=== PATIENT | female | born 1940 | race Caucasian/White ===

== ENCOUNTER 2018-04-02 17:19 | Inpatient (IN) ==
[2018-04-02] MEDS ORDERED: D5% in Water 1,000 ML IVC PRN (18:25)
[2018-04-02] MEDS ORDERED: Dextrose Gel 15 GM/37.5 ML TUBE PO PRN ×2 (18:25)
[2018-04-02] MEDS ORDERED: *HR* Dextrose 50 % in Water (Syg) 50 ML SYRINGE IVP PRN (18:25)
[2018-04-02] MEDS: *HR* HYDROcodone/Acet 5/325 mg TABLET PO PRN ×2 (18:53→23:23)
[2018-04-02] MEDS ORDERED: Insulin DETEMIR 100 UNIT/ML per UNIT SQ ONE (21:00)
[2018-04-02] MEDS ORDERED: NON-FORMULARY MEDICATION 1 EACH EACH (Insulin Glargine,Hum.Rec.Anlog [Basaglar Kwikpen U-1 SQ SCH (21:00)
[2018-04-02] MEDS: Budesonide/Formoterol 160/4.5 MDI IH SCH (21:29)
[2018-04-02] MEDS: Linezolid 600 MG TABLET PO SCH (21:36)
[2018-04-02] MEDS: Gabapentin 300 MG CAPSULE PO SCH (21:36)
[2018-04-02] MEDS: Insulin LISPRO 300 UNITS/3 ML VIAL SQ SCH (21:38)
[2018-04-02] MEDS: RESTASIS OP SCH (21:39)
[2018-04-03] MEDS ORDERED: *HR* FentaNYL PATCH 12 MCG PATCH TD SCH (01:45)
[2018-04-03] MEDS ORDERED: OMEGA PO SCH (09:00)
[2018-04-03] MEDS ORDERED: DHA PO SCH (09:00)
[2018-04-03] MEDS ORDERED: KRILL PO SCH (09:00)
[2018-04-03] MEDS ORDERED: LIPIDS PO SCH (09:00)
[2018-04-03] MEDS ORDERED: Furosemide 40 MG TABLET PO SCH (09:00)
[2018-04-03] MEDS ORDERED: EPA PO SCH (09:00)
[2018-04-03] MEDS: Insulin LISPRO 300 UNITS/3 ML VIAL SQ SCH ×4 (09:20→21:23)
[2018-04-03] MEDS: Aspirin 81 MG TAB.CHEW PO SCH (09:51)
[2018-04-03] MEDS: Gabapentin 300 MG CAPSULE PO SCH ×3 (09:51→21:23)
[2018-04-03] MEDS: Cholecalciferol (D-3) 1,000 UNIT TABLET PO SCH (09:51)
[2018-04-03] MEDS: predniSONE 20 MG TABLET PO SCH (09:51)
[2018-04-03] MEDS: Folic Acid 1 MG TABLET PO SCH (09:51)
[2018-04-03] MEDS: Linezolid 600 MG TABLET PO SCH ×2 (09:51→21:23)
[2018-04-03] MEDS: *HR* HYDROcodone/Acet 5/325 mg TABLET PO PRN ×3 (09:52→22:03)
[2018-04-03] MEDS: Budesonide/Formoterol 160/4.5 MDI IH SCH ×2 (10:41→21:34)
[2018-04-03] MEDS: Methocarbamol 500 MG TABLET PO PRN ×2 (11:42→22:03)
[2018-04-03] MEDS: RESTASIS OP SCH ×2 (14:03→21:25)
--- NOTE | 2018-04-03 16:29 | Internal Med History&Physical ---
Date of Encounter: 04/03/18 Time of Encounter: 15:50 Assessment and Plan (1) Anemia Current visit: No Status: Acute Anemia testing 08/14/2017 showed iron 146, transferrin saturation 36%, transferrin 289, ferritin 126, B12 707, and folate 16.5. We will monitor CBC. Qualifiers: Anemia type: unspecified type Qualified Code(s): D64.9 - Anemia, unspecified (2) CKD (chronic kidney disease) stage 3, GFR 30-59 ml/min Current visit: No Status: Chronic Will monitor renal indices. (3) Pulmonary fibrosis, unspecified Current visit: No Status: Chronic Continue oxygen. (4) Diabetes mellitus Current visit: No Status: Acute Hemoglobin A1c was 10.7% on 01/26/2018. Continue Levemir and Accu-Cheks with SSI. Qualifiers: Diabetes mellitus type: type 2 Diabetes mellitus ferry terminal agent insulin use: with long-term use Diabetes mellitus complication status: with kidney complications Diabetes mellitus complication detail: with chronic kidney disease Chronic kidney disease stage: stage 3 (moderate) Qualified Code(s): E11.22 - Type 2 diabetes mellitus with diabetic chronic kidney disease; N18.3 - Chronic kidney disease, stage 3 (moderate); Z79.4 - custodial (current) use of insulin (5) Compression fracture of L4 lumbar vertebra Current visit: No Status: Chronic Vitamin D level was normal at 33 on 02/17/2018. Continue vitamin D supplement. Osteoporosis status unknown. Qualifiers: Encounter type: subsequent encounter Fracture type: closed Fracture healing: with routine healing Qualified Code(s): S32.040D - Wedge compression fracture of fourth lumbar vertebra, subsequent encounter for fracture with routine healing Internal Medicine - H&P: HPI Chief complaint: Back pain, dyspnea Admitted From: Hospital to Hospital Transfer Plans for Post Hospital Care: Home History of present illness: Ms. Pop is a 77 year old female who was hospitalized at [facility] March 28- with UTI and back pain possibly due to subacute L4 compression fracture. It was felt she would benefit from ongoing therapy and she was discharged to [facility] swing bed. Past Med Surg Social Fam HX - Past Medical History Medical history: arthritis, cancer, COPD, diabetes, fibromyalgia, GERD, myocardial infarction, thyroid disease, other Psychiatric history: no psych history - Past Surgical History Surgical History: appendectomy, hysterectomy, orthopedic, other - Social History Smoking Status: Former smoker Smokeless Tobacco Status: No Alcohol use: none Drug use: none - Family History Father Family Member Ethnicity: Non- Living Status: Hx Family Cancer: Yes (Stomach ca) Mother Family Member Ethnicity: Non- Living Status: Hx Family Cardiac Disorders: Yes (Aneurysm) Brother Family Member Ethnicity: Non- Living Status: Sister Family Member Ethnicity: Non- Living Status: Hx Family Cardiac Disorders: Yes (DVT) Hx Family Endocrine Disorder: Yes (Liver disease) Internal Medicine - H&P: Meds Docusate Sodium [Colace] 100 mg PO DAILY PRN 04/08/16 [History] Folic Acid 1 mg PO DAILY 04/08/16 [History] Albuterol Sulfate [Ventolin Hfa] 2 puff IH Q4H PRN 04/11/16 [History] Budesonide/Formoterol 160/4.5 [Symbicort 160/4.5] 2 puff IH BIDR 04/11/16 [ History] Aspirin 81 mg PO DAILY 04/18/16 [History] Cholecalciferol (D-3) [Vitamin D] 1,000 unit PO DAILY 01/12/17 [History] Krill/[place]-3/Dha/Epa/Lipids [Krill Oil 300 mg Softgel] 1 cap PO DAILY 01/12/17 [History] Rosuvastatin Calcium [Crestor] 5 mg PO Q48H 01/12/17 [History] Levothyroxine Sodium [Levoxyl] 100 mcg PO QAM 07/31/17 [History] Esomeprazole Magnesium [Nexium] 20 mg PO DAILY 10/21/17 [History] Cyclosporine [Restasis Multidose] 1 drop BOTH EYES BID 11/13/17 [History] Insulin Glargine,Hum.rec.anlog [Basaglar Kwikpen U-100] 10 unit SQ HS 01/25/18 [ History] Insulin LISPRO [Humalog Kwikpen U-100] 2 - 10 unit SQ QID 01/25/18 [History] Brimonidine Tartrate 1 drop RIGHT EYE TID 03/28/18 [History] Metoprolol [Lopressor] 12.5 mg PO BID 03/28/18 [History] Furosemide [Lasix] 40 mg PO DAILY tablet 04/02/18 [Rx] Gabapentin [Neurontin] 600 mg PO TID capsule 04/02/18 [Rx] Lidocaine Patch [Lidoderm 5% patch] 1 each TP DAILY adh..patch 04/02/18 [Rx] Linezolid [Zyvox] 600 mg PO BID 4 Days tablet 04/02/18 [Rx] Silvasorb 1 appl TP DAILY tube 04/02/18 [Rx] predniSONE [PredniSONE] See Taper PO DAILY 30 Days #100 tablet 04/02/18 [Rx] 3 Allergy/AdvReac Type Severity Reaction Status Date / Time No Known Allergies Allergy Verified 03/28/18 09:53 All Systems PM: A 10-system review of systems was performed and is negative for pertinent findings except as documented above in the HPI. Review of systems: Gen.: She states her weight has increased approximately 50 pounds in the past year. She attributes this to prednisone use Cardiovascular: She has history of hypertension. She has known ASHD status post OK with single stent placed approximately 2001. She denies follow-up stress test or heart catheter since then. She denies DVT or pulmonary embolus. An echocardiogram 01/26/2018 showed LVEF of 60%. There was increased thickness of the interventricular septum and posterior wall at 1.60 and 1.20 cm respectively. The E/A ratio was 0.8. There was mild tricuspid regurgitation and minimally elevated RVSP estimated at 39 mmHg. Respiratory: She smoked from age [age] up to 2 packs per day. She reports being diagnosed with COPD although pulmonary function tests at [facility] 03/12/2017 showed normal spirometry but severe decrease in diffusion capacity at 28%. She has pulmonary fibrosis which she attributes to XRT for NSCLC. She reports she is "cured" of the lung cancer. She wears oxygen at home 08/06. GI: She has GERD but denies disorders of her liver or exocrine pancreas : She has chronic kidney disease stage III and follows with a [place] corrections counselor. She has frequent UTIs. She denies other kidney or bladder disorders Neurologic: She claims she has had mini strokes. She denies large distribution strokes or seizures. Endocrine: She was diagnosed with DM 2 approximately 6 months ago. She has hypothyroidism and history of hyperlipidemia Hematology/oncology: She has NSCLC diagnosed and treated with XRT 2014. She was unaware she had anemia. She denies other internal malignancies or blood disorders Psychiatric: She denies anxiety or depression or other mental health issues [place] skeletal: She has rheumatoid arthritis and fibromyalgia. She had subacute L4 vertebral fracture documented during her recent [facility] stay. She has had bilateral total shoulder replacements and right ankle pin inserted. - Constitutional Vitals: Temp Pulse Resp BP Pulse Ox 97.9 F 77 14 142/76 99 04/03/18 06:00 04/03/18 10:34 04/03/18 10:41 04/03/18 06:00 04/03/18 10:41 Exam: Gen.: She is a well-developed overweight female sitting in a chair at bedside who appears in no acute distress HEENT: Head is atraumatic and normocephalic. Eyes: EOMI. There is no scleral icterus. Mouth: Mucosa is moist. Neck: Supple and nontender. There is no thyromegaly or adenopathy noted. Heart: Regular without murmurs gallops or ectopics Lungs: No wheezes or crackles are heard. Abdomen: Soft and nontender. No masses or guarding are noted. Extremities: She has thinning of the skin with significant ecchymoses of various stages of her arms and legs. She has 3-4+ edema of the dorsum of the feet and significant edema of the lower legs. Dorsalis pedis and posttibial pulses are nonpalpable. Neurologic: Mental status: She is talkative and a good historian. Cranial nerves: Smile is symmetric. Forehead wrinkles bilaterally. Tongue protrudes midline. EOMI. Motor: There is no pronator drift. Cerebellar: Finger to nose is intact bilaterally. Skin: Warm and dry with widespread extremity ecchymoses as described above.
[2018-04-03] MEDS: Silvasorb 44.4 ML TUBE TP SCH (16:35)
[2018-04-03] MEDS: Insulin DETEMIR 100 UNIT/ML X5UNITS SQ SCH (21:22)
[2018-04-04] MEDS: *HR* HYDROcodone/Acet 5/325 mg TABLET PO PRN ×4 (03:17→22:04)
[2018-04-04] MEDS: Aspirin 81 MG TAB.CHEW PO SCH (08:55)
[2018-04-04] MEDS: Bumetanide 1 MG TABLET PO SCH (08:55)
[2018-04-04] MEDS: predniSONE 20 MG TABLET PO SCH (08:57)
[2018-04-04] MEDS: Cholecalciferol (D-3) 1,000 UNIT TABLET PO SCH (08:58)
[2018-04-04] MEDS: Gabapentin 300 MG CAPSULE PO SCH ×3 (08:58→22:05)
[2018-04-04] MEDS: Folic Acid 1 MG TABLET PO SCH (08:59)
[2018-04-04] MEDS: Linezolid 600 MG TABLET PO SCH ×2 (08:59→22:04)
[2018-04-04] MEDS: Insulin LISPRO 300 UNITS/3 ML VIAL SQ SCH ×4 (09:02→22:07)
[2018-04-04] MEDS: Budesonide/Formoterol 160/4.5 MDI IH SCH ×2 (10:30→21:51)
[2018-04-04] MEDS: Silvasorb 44.4 ML TUBE TP SCH (11:55)
[2018-04-04] MEDS: RESTASIS OP SCH ×2 (11:55→22:32)
--- NOTE | 2018-04-04 12:10 | Internal Med Progress Note ---
Date of Encounter: 04/04/18 Time of Encounter: 12:00 - Assessment and plan (1) Anemia Current Visit: No Status: Acute Assessment and plan: April 04. Anemia testing 08/14/2017 showed iron 146, transferrin saturation 36%, transferrin 289, ferritin 126, B12 707, and folate 16.5. We will monitor CBC. Qualifiers: Anemia type: unspecified type Qualified Code(s): D64.9 - Anemia, unspecified (2) CKD (chronic kidney disease) stage 3, GFR 30-59 ml/min Current Visit: No Status: Chronic Assessment and plan: April 04. Will monitor renal indices. (3) Pulmonary fibrosis, unspecified Current Visit: No Status: Chronic Assessment and plan: April 04. Continue supplemental oxygen. (4) Diabetes mellitus Current Visit: No Status: Acute Assessment and plan: April 04. Hemoglobin A1c was 10.7% on 01/26/2018. Continue Levemir and Accu- Cheks with SSI. Qualifiers: Diabetes mellitus type: type 2 Diabetes mellitus intermediate accountant insulin use: with mcc use Diabetes mellitus complication status: with kidney complications Diabetes mellitus complication detail: with chronic kidney disease Chronic kidney disease stage: stage 3 (moderate) Qualified Code(s): E11.22 - Type 2 diabetes mellitus with diabetic chronic kidney disease; N18.3 - Chronic kidney disease, stage 3 (moderate); Z79.4 - senior care (current) use of insulin (5) Compression fracture of L4 lumbar vertebra Current Visit: No Status: Chronic Assessment and plan: April 04. Will add BenGay and Lidoderm to low back. Qualifiers: Encounter type: subsequent encounter Fracture type: closed Fracture healing: with routine healing Qualified Code(s): S32.040D - Wedge compression fracture of fourth lumbar vertebra, subsequent encounter for fracture with routine healing (6) Dysphagia Current Visit: Yes Status: Acute Assessment and plan: April 04. I told her she might have XRT damage to the esophagus. Will continue present diet for now. Her PCP can order further workup. Qualifiers: Dysphagia type: esophageal phase Qualified Code(s): R13.10 - Dysphagia, unspecified - Subjective Interval history: April 04. She complains of intermittent solid food dysphagia. She reports it has been increasing gradually over several months. She reports an EGD many years ago was unremarkable. - Constitutional Vitals: Temp Pulse Resp BP Pulse Ox 99.5 F 71 18 158/80 93 04/04/18 07:21 04/04/18 07:21 04/04/18 07:21 04/04/18 07:21 04/04/18 07:21 Exam: She is resting comfortably in a chair at bedside and appears in minimal distress. Her affect is cheerful overall. I reviewed her medications and past history. Consult Discharge Plan - Plan Referrals: Twin Salvador Jr, MD [Primary Care Provider] - 1 week
[2018-04-04] MEDS: Ondansetron ODT 4 MG TAB.RAPDIS SL PRN ×2 (12:41→22:04)
[2018-04-04] MEDS: Insulin DETEMIR 100 UNIT/ML X5UNITS SQ SCH (22:06)
[2018-04-05] MEDS: Methocarbamol 500 MG TABLET PO PRN (06:41)
[2018-04-05 08:54] LABS: Basophils # 0.1 K/mcL (0.0-0.2); Basophils % 0.6 %; Eosinophils # 0.1 K/mcL (0.0-0.6); Eosinophils % 0.7 %; Hemoglobin 11.8 g/dL (11.5-15.4); Immature Granulocytes % 2.5 % (0-4); Lymphocytes # 1.5 K/mcL (0.6-4.6); Lymphocytes % 12.4 %; Mean Corpuscular HGB Conc 31.1 g/dL (31.6-35.5); Mean Corpuscular Hemoglobin 30.5 pg (28.0-33.3); Mean Corpuscular Volume 98.2 fL (83.0-100.0); Mean Platelet Volume 10.4 fL (9.4-12.4); Monocytes # 1.1 K/mcL (0.0-1.3); Monocytes % 8.6 %; Neutrophils # 9.2 K/mcL (1.6-8.9); Platelet Count 230 K/mcL (140-400); Red Blood Count 3.87 M/mcL (3.82-4.97); Red Cell Distribution Width 13.9 % (11.5-14.5); Segmented Neutrophils % 75.2 %
[2018-04-05] MEDS: Linezolid 600 MG TABLET PO SCH ×2 (09:49→20:31)
[2018-04-05] MEDS: Bumetanide 1 MG TABLET PO SCH (09:50)
[2018-04-05] MEDS: Folic Acid 1 MG TABLET PO SCH (09:51)
[2018-04-05] MEDS: Cholecalciferol (D-3) 1,000 UNIT TABLET PO SCH (09:51)
[2018-04-05] MEDS: Aspirin 81 MG TAB.CHEW PO SCH (09:51)
[2018-04-05] MEDS: Gabapentin 300 MG CAPSULE PO SCH ×3 (09:51→20:31)
[2018-04-05] MEDS: predniSONE 20 MG TABLET PO SCH (09:52)
[2018-04-05] MEDS: Insulin LISPRO 300 UNITS/3 ML VIAL SQ SCH ×4 (09:59→20:30)
[2018-04-05] MEDS: *HR* HYDROcodone/Acet 5/325 mg TABLET PO PRN (10:02)
[2018-04-05 10:12] LABS: Calcium 8.9 mg/dL (8.6-10.3); Potassium 3.2 mEq/L (3.5-5.1)
[2018-04-05] MEDS: RESTASIS OP SCH ×2 (10:15→20:34)
[2018-04-05] MEDS: Budesonide/Formoterol 160/4.5 MDI IH SCH ×2 (10:19→21:30)
[2018-04-05] MEDS: Silvasorb 44.4 ML TUBE TP SCH (10:36)
[2018-04-05] MEDS: Methyl Salicylate/Menthol 28 GM TUBE TP SCH (10:36)
[2018-04-05] MEDS: Insulin DETEMIR 100 UNIT/ML X5UNITS SQ SCH (20:33)
[2018-04-06] MEDS: *HR* HYDROcodone/Acet 5/325 mg TABLET PO PRN ×5 (01:04→22:41)
[2018-04-06] MEDS: Gabapentin 300 MG CAPSULE PO SCH ×3 (08:50→20:41)
[2018-04-06] MEDS: Linezolid 600 MG TABLET PO SCH ×2 (08:50→20:42)
[2018-04-06] MEDS: Aspirin 81 MG TAB.CHEW PO SCH (08:50)
[2018-04-06] MEDS: Bumetanide 1 MG TABLET PO SCH (08:50)
[2018-04-06] MEDS: predniSONE 20 MG TABLET PO SCH (08:50)
[2018-04-06] MEDS: Folic Acid 1 MG TABLET PO SCH (08:50)
[2018-04-06] MEDS: Cholecalciferol (D-3) 1,000 UNIT TABLET PO SCH (08:50)
[2018-04-06] MEDS: RESTASIS OP SCH ×2 (08:51→22:40)
[2018-04-06] MEDS: Insulin LISPRO 300 UNITS/3 ML VIAL SQ SCH ×4 (08:52→20:46)
[2018-04-06] MEDS: Silvasorb 44.4 ML TUBE TP SCH (09:00)
[2018-04-06] MEDS: Methyl Salicylate/Menthol 28 GM TUBE TP SCH (09:00)
[2018-04-06] MEDS ORDERED: *HR* FentaNYL PATCH 12 MCG PATCH TD SCH (09:00)
[2018-04-06] MEDS: Budesonide/Formoterol 160/4.5 MDI IH SCH ×3 (11:13→22:08)
--- NOTE | 2018-04-06 15:27 | Internal Med Progress Note ---
Date of Encounter: 04/06/18 Time of Encounter: 15:20 - Assessment and plan (1) Anemia Current Visit: No Status: Acute Assessment and plan: April 04. Anemia testing 08/14/2017 showed iron 146, transferrin saturation 36%, transferrin 289, ferritin 126, B12 707, and folate 16.5. We will monitor CBC. Qualifiers: Anemia type: unspecified type Qualified Code(s): D64.9 - Anemia, unspecified (2) CKD (chronic kidney disease) stage 3, GFR 30-59 ml/min Current Visit: No Status: Chronic Assessment and plan: April 04. Will monitor renal indices. (3) Pulmonary fibrosis, unspecified Current Visit: No Status: Chronic Assessment and plan: April 04. Continue supplemental oxygen. (4) Diabetes mellitus Current Visit: No Status: Acute Assessment and plan: April 04. Hemoglobin A1c was 10.7% on 01/26/2018. Continue Levemir and Accu- Cheks with SSI. April 06. Blood sugars are generally acceptable. Continue present regimen. Qualifiers: Diabetes mellitus type: type 2 Diabetes mellitus custodial insulin use: with keno terminal operator use Diabetes mellitus complication status: with kidney complications Diabetes mellitus complication detail: with chronic kidney disease Chronic kidney disease stage: stage 3 (moderate) Qualified Code(s): E11.22 - Type 2 diabetes mellitus with diabetic chronic kidney disease; N18.3 - Chronic kidney disease, stage 3 (moderate); Z79.4 - shelter (current) use of insulin (5) Compression fracture of L4 lumbar vertebra Current Visit: No Status: Chronic Assessment and plan: April 04. Will add BenGay and Lidoderm to low back. Qualifiers: Encounter type: subsequent encounter Fracture type: closed Fracture healing: with routine healing Qualified Code(s): S32.040D - Wedge compression fracture of fourth lumbar vertebra, subsequent encounter for fracture with routine healing (6) Dysphagia Current Visit: Yes Status: Acute Assessment and plan: April 04. I told her she might have XRT damage to the esophagus. Will continue present diet for now. Her PCP can order further workup. Qualifiers: Dysphagia type: esophageal phase Qualified Code(s): R13.10 - Dysphagia, unspecified (7) Hypokalemia Current Visit: Yes Status: Acute Assessment and plan: April 06. Will add supplemental potassium. - Subjective Interval history: April 04. She complains of intermittent solid food dysphagia. She reports it has been increasing gradually over several months. She reports an EGD many years ago was unremarkable. April 06. She complains of some oral mucosa soreness but otherwise has no new complaints and feels better. - Constitutional Vitals: Temp Pulse Resp BP Pulse Ox 98.3 F 67 16 169/86 94 04/06/18 07:07 04/06/18 07:07 04/06/18 11:13 04/06/18 07:07 04/06/18 11:13 Exam: She is sitting in a recliner chair with her legs elevated. Her extremity edema has noticeably decreased. Lungs show no wheezes or crackles. I reviewed her medications. I reviewed pertinent lab results with her. Internal Medicine: Result - Labs CBC & Chem 7: 04/05/18 08:05 04/05/18 08:05 Consult Discharge Plan - Plan Referrals: Twin Salvador Jr, MD [Primary Care Provider] - 1 week
[2018-04-06] MEDS: Nystatin SUSP 5 ML UD.LIQ PO SCH ×2 (16:32→20:44)
[2018-04-06] MEDS: Ondansetron ODT 4 MG TAB.RAPDIS SL PRN (20:41)
[2018-04-06] MEDS: Insulin DETEMIR 100 UNIT/ML X5UNITS SQ SCH (20:45)
[2018-04-07] MEDS ORDERED: Mag Hydrox/Al Hydrox/Simeth 30 ML UDC PO PRN (01:04)
[2018-04-07] MEDS: Insulin LISPRO 300 UNITS/3 ML VIAL SQ SCH ×4 (09:06→21:37)
[2018-04-07] MEDS: Bumetanide 1 MG TABLET PO SCH (09:18)
[2018-04-07] MEDS: Folic Acid 1 MG TABLET PO SCH (09:18)
[2018-04-07] MEDS: Cholecalciferol (D-3) 1,000 UNIT TABLET PO SCH (09:18)
[2018-04-07] MEDS: predniSONE 20 MG TABLET PO SCH (09:18)
[2018-04-07] MEDS: Gabapentin 300 MG CAPSULE PO SCH ×3 (09:18→21:35)
[2018-04-07] MEDS: Aspirin 81 MG TAB.CHEW PO SCH (09:18)
[2018-04-07] MEDS: Nystatin SUSP 5 ML UD.LIQ PO SCH ×4 (09:19→21:36)
[2018-04-07] MEDS: Linezolid 600 MG TABLET PO SCH ×2 (09:19→21:35)
[2018-04-07] MEDS: *HR* HYDROcodone/Acet 5/325 mg TABLET PO PRN ×2 (09:19→16:13)
[2018-04-07] MEDS: Silvasorb 44.4 ML TUBE TP SCH (09:20)
[2018-04-07] MEDS: RESTASIS OP SCH ×2 (09:20→21:36)
[2018-04-07] MEDS: Methyl Salicylate/Menthol 28 GM TUBE TP SCH (09:20)
[2018-04-07] MEDS: Budesonide/Formoterol 160/4.5 MDI IH SCH ×2 (11:02→21:47)
[2018-04-07] MEDS: Insulin DETEMIR 100 UNIT/ML X5UNITS SQ SCH (21:38)
[2018-04-08] MEDS: Methocarbamol 500 MG TABLET PO PRN ×2 (02:40→08:53)
[2018-04-08] MEDS: *HR* HYDROcodone/Acet 5/325 mg TABLET PO PRN (05:36)
[2018-04-08 07:38] VITALS: BP 133/77
[2018-04-08] MEDS: Linezolid 600 MG TABLET PO SCH (08:16)
[2018-04-08] MEDS: Gabapentin 300 MG CAPSULE PO SCH (08:16)
[2018-04-08] MEDS: Nystatin SUSP 5 ML UD.LIQ PO SCH (08:16)
[2018-04-08] MEDS: Bumetanide 1 MG TABLET PO SCH (08:17)
[2018-04-08] MEDS: Folic Acid 1 MG TABLET PO SCH (08:17)
[2018-04-08] MEDS: predniSONE 20 MG TABLET PO SCH (08:18)
[2018-04-08] MEDS: Cholecalciferol (D-3) 1,000 UNIT TABLET PO SCH (08:18)
[2018-04-08] MEDS: Aspirin 81 MG TAB.CHEW PO SCH (08:18)
[2018-04-08] MEDS: Insulin LISPRO 300 UNITS/3 ML VIAL SQ SCH (08:18)
[2018-04-08] MEDS: Methyl Salicylate/Menthol 28 GM TUBE TP SCH (08:20)
[2018-04-08] MEDS: RESTASIS OP SCH (08:21)
--- NOTE | 2018-04-08 10:45 | Discharge Summary ---
Date of Encounter: 04/08/18 Time of Encounter: 10:37 - Discharge Diagnosis (1) Compression fracture of L4 lumbar vertebra Priority: Primary Status: Chronic Qualifiers: Encounter type: subsequent encounter Fracture type: closed Fracture healing: with routine healing Qualified Code(s): S32.040D - Wedge compression fracture of fourth lumbar vertebra, subsequent encounter for fracture with routine healing (2) Anemia Priority: Secondary Status: Acute Qualifiers: Anemia type: unspecified type Qualified Code(s): D64.9 - Anemia, unspecified (3) CKD (chronic kidney disease) stage 3, GFR 30-59 ml/min Priority: Secondary Status: Chronic (4) Pulmonary fibrosis, unspecified Priority: Secondary Status: Chronic (5) Diabetes mellitus Priority: Secondary Status: Chronic Qualifiers: Diabetes mellitus type: type 2 Diabetes mellitus shelter insulin use: with shelter use Diabetes mellitus complication status: with kidney complications Diabetes mellitus complication detail: with chronic kidney disease Chronic kidney disease stage: stage 3 (moderate) Qualified Code(s): E11.22 - Type 2 diabetes mellitus with diabetic chronic kidney disease; N18.3 - Chronic kidney disease, stage 3 (moderate); Z79.4 - exterminator helper (current) use of insulin (6) Dysphagia Priority: Secondary Status: Chronic Qualifiers: Dysphagia type: esophageal phase Qualified Code(s): R13.10 - Dysphagia, unspecified (7) Hypokalemia Priority: Secondary Status: Acute Hospital course: Ms. Pop is a 77 year old female who was hospitalized at [facility] March 28- with UTI and back pain possibly due to subacute L4 compression fracture. It was felt she would benefit from ongoing therapy and she was discharged to [facility] swing bed. Initial orders were written by the discharging physician at [facility]. I saw her on April 03 and performed the swing bed history and physical. She had physical therapy and occupational therapy evaluations with ongoing intervention. She made satisfactory progress. Her ambulation distance improved. She was maintained on continuous oxygen for pulmonary fibrosis. Zyvox was continued during her swing bed stay for UTI. This will be discontinued at discharge. She was started on Bumex and had excellent clinical results with significant diuresis and improvement in her peripheral edema and dyspnea. She will continue this at discharge. Because of her multiple medical problems she will require a semi-electric hospital bed for frequent changes in body position. Position changes are not feasible with an ordinary bed since she will need the head of the bed elevated at least 30 degrees. On April 08 the patient stated she wished to be discharged home. She will follow with her PCP Dr. Salvador within 1 week. - Time Spent with Patient Total time spent providing and/or coordinating discharge services: - Discharge Medications Prescriptions: Bumetanide [Bumex] 1.5 mg PO DAILY #45 tablet Potassium Chloride 10 meq PO DAILY #30 tab.er.prt Home Medications: Docusate Sodium [Colace] 100 mg PO DAILY PRN 04/08/16 [History] Folic Acid 1 mg PO DAILY 04/08/16 [History] Albuterol Sulfate [Ventolin Hfa] 2 puff IH Q4H PRN 04/11/16 [History] Budesonide/Formoterol 160/4.5 [Symbicort 160/4.5] 2 puff IH BIDR 04/11/16 [ History] Aspirin 81 mg PO DAILY 04/18/16 [History] Cholecalciferol (D-3) [Vitamin D] 1,000 unit PO DAILY 01/12/17 [History] Krill/[employer]-3/Dha/Epa/Lipids [Krill Oil 300 mg Softgel] 1 cap PO DAILY 01/12/17 [History] Rosuvastatin Calcium [Crestor] 5 mg PO Q48H 01/12/17 [History] Levothyroxine Sodium [Levoxyl] 100 mcg PO QAM 07/31/17 [History] Esomeprazole Magnesium [Nexium] 20 mg PO DAILY 10/21/17 [History] Cyclosporine [Restasis Multidose] 1 drop BOTH EYES BID 11/13/17 [History] Insulin Glargine,Hum.rec.anlog [Basaglar Kwikpen U-100] 10 unit SQ HS 01/25/18 [ History] Insulin LISPRO [Humalog Kwikpen U-100] 2 - 10 unit SQ QID 01/25/18 [History] Brimonidine Tartrate 1 drop RIGHT EYE TID 03/28/18 [History] Metoprolol [Lopressor] 12.5 mg PO BID 03/28/18 [History] Gabapentin [Neurontin] 600 mg PO TID capsule 04/02/18 [Rx] Lidocaine Patch [Lidoderm 5% patch] 1 each TP DAILY adh..patch 04/02/18 [Rx] Silvasorb 1 appl TP DAILY tube 04/02/18 [Rx] predniSONE [PredniSONE] See Taper PO DAILY 30 Days #100 tablet 04/02/18 [Rx] Bumetanide [Bumex] 1.5 mg PO DAILY #45 tablet 04/08/18 [Rx] Potassium Chloride 10 meq PO DAILY #30 tab.er.prt 04/08/18 [Rx] Allergies/Adverse Reactions: 3 Allergy/AdvReac Type Severity Reaction Status Date / Time No Known Allergies Allergy Verified 03/28/18 09:53 Date of admission: 04/02/18 17:19 Primary care physician: Twin Salvador Jr, MD Consults: 04/02/18 18:08 Consult to Occupational Therapy [CONS] Routine Comment: Evaluate, Develop, and Implement plan of care Reason for Consult: Evaluate, Develop, and Implement plan of care Does patient have active BEDREST order?: No Is patient medically & hemodynamically stable?: Yes Patient assessed for mobility or mobilized this visit?: Yes Consult to Physical Therapy [CONS] Routine Comment: Evaluate, Develop, and Implement plan of care Reason for Consult: Evaluate, Develop, and Implement plan of care Does patient have active BEDREST order?: No Is patient medically & hemodynamically stable?: Yes Patient assessed for mobility or mobilized this visit?: Yes Consult to Solutions Developer [CONS] Routine Reason for SW Consult: Discharge Planning - Constitutional Vitals: Temp Pulse Resp BP Pulse Ox 97.6 F 70 14 133/77 99 04/08/18 07:13 04/08/18 07:13 04/08/18 07:13 04/08/18 07:13 04/08/18 07:13 - Patient Status Disposition: Home Health Service Functional capacity at discharge: uses cane/walker - Discharge Instructions Follow Up With: Twin Salvador Jr, MD [Primary Care Provider] - 1 week - Diet and Activity Activity: resume usual activities as tolerated, wear oxygen at all times Diet: diabetic diet
[2018-04-08] MEDS: Budesonide/Formoterol 160/4.5 MDI IH SCH (10:49)
--- NOTE | 2018-04-08 10:59 | Physician Discharge Referral ---
Home Health/Hosp Referral Info Transfer to: Home Health Attending Provider: Walter Provider in Charge Post Discharge: PCP Vane) - Diagnosis (1) Compression fracture of L4 lumbar vertebra Priority: Primary Status: Chronic (2) Anemia Priority: Secondary Status: Acute (3) CKD (chronic kidney disease) stage 3, GFR 30-59 ml/min Priority: Secondary Status: Chronic (4) Pulmonary fibrosis, unspecified Priority: Secondary Status: Chronic (5) Diabetes mellitus Priority: Secondary Status: Chronic (6) Dysphagia Priority: Secondary Status: Chronic (7) Hypokalemia Priority: Secondary Status: Acute - Respiratory Orders Oxygen / L per min (5-10 L/m to keep sat greater than 90%.) Smoking Cessation: Smoking cessation has been advised. For more information, call the [employer] Tobacco Quit Line at 7-070-ZXYC-NOW. - Diet/Nutrition Diet/Nutrition Orders: No Concentrated Sweets - Activity Activity Orders: Walker - Services Needed Following services are medically necessary services: Nursing, Home Health Aide, Physical Therapy, Occupational Therapy - Transfer Medications Prescriptions: Bumetanide [Bumex] 1.5 mg PO DAILY #45 tablet Potassium Chloride 10 meq PO DAILY #30 tab.er.prt Home Medications: Docusate Sodium [Colace] 100 mg PO DAILY PRN 04/08/16 [History] Folic Acid 1 mg PO DAILY 04/08/16 [History] Albuterol Sulfate [Ventolin Hfa] 2 puff IH Q4H PRN 04/11/16 [History] Budesonide/Formoterol 160/4.5 [Symbicort 160/4.5] 2 puff IH BIDR 04/11/16 [ History] Aspirin 81 mg PO DAILY 04/18/16 [History] Cholecalciferol (D-3) [Vitamin D] 1,000 unit PO DAILY 01/12/17 [History] Krill/[place]-3/Dha/Epa/Lipids [Krill Oil 300 mg Softgel] 1 cap PO DAILY 01/12/17 [History] Rosuvastatin Calcium [Crestor] 5 mg PO Q48H 01/12/17 [History] Levothyroxine Sodium [Levoxyl] 100 mcg PO QAM 07/31/17 [History] Esomeprazole Magnesium [Nexium] 20 mg PO DAILY 10/21/17 [History] Cyclosporine [Restasis Multidose] 1 drop BOTH EYES BID 11/13/17 [History] Insulin Glargine,Hum.rec.anlog [Basaglar Kwikpen U-100] 10 unit SQ HS 01/25/18 [ History] Insulin LISPRO [Humalog Kwikpen U-100] 2 - 10 unit SQ QID 01/25/18 [History] Brimonidine Tartrate 1 drop RIGHT EYE TID 03/28/18 [History] Metoprolol [Lopressor] 12.5 mg PO BID 03/28/18 [History] Gabapentin [Neurontin] 600 mg PO TID capsule 04/02/18 [Rx] Lidocaine Patch [Lidoderm 5% patch] 1 each TP DAILY adh..patch 04/02/18 [Rx] Silvasorb 1 appl TP DAILY tube 04/02/18 [Rx] predniSONE [PredniSONE] See Taper PO DAILY 30 Days #100 tablet 04/02/18 [Rx] Bumetanide [Bumex] 1.5 mg PO DAILY #45 tablet 04/08/18 [Rx] Potassium Chloride 10 meq PO DAILY #30 tab.er.prt 04/08/18 [Rx] Allergies/Adverse Reactions: 3 Allergy/AdvReac Type Severity Reaction Status Date / Time No Known Allergies Allergy Verified 03/28/18 09:53 Certification: Further, I certify that my clinical findings support that this patient is homebound (i.e. absences from home require considerable and taxing effort and are for medical reasons or [employer] or infrequently or short duration when for other reasons) because: Homebound Reason: Leaving home requires considerable and taxing effort due to condition (Chronic hypoxemia with pulmonary fibrosis.) Attestation: My signature below is to certify that this patient is under my care and that I, or nurse practitioner, or a physician's special education teaching assistant working with me, has a face-to -face encounter with this patient.
== END 2018-04-08 12:12 | disposition home health service (06) | DRG 560 ==
LOC: INPPIK 17:19
PROVIDERS: ADMIT Internal Medicine; ATTEND Internal Medicine